=== PATIENT | female | born 1940 | race Caucasian/White ===

== ENCOUNTER 2020-01-27 00:19 | Inpatient (IN) | payer OTHER ==
[2020-01-27] VITALS (33 sets, daily range): BP systolic 115–156; BP diastolic 51–79
[~2020-01-27] VITALS: Ht 165.1 cm; Wt 90.9 kg
--- NOTE | ~2020-01-27 | EMS ---
[place] [address] EMS Patient Care Report Name: TIO YOU Room #: 170-12 ADM IN M.R.#: [id number] Admission: 01/27/20 Attend Phys: Nate Dickerson MD Discharge: Date of : 44 Report #: [id number] THIS REPORT FOR: //name// Report Transmitted: 01/27/2020 01:14 EMS Care Summary [place], [place] Incident [id number] @ 01/26/2020 23:52 Incident Location [address] [place] [address] Patient TIO YOU Female, 79 Years 1940 Patient Address [address] [place] [address] Patient History Novel Coronavirus (COVID-19), Patient Allergies No known allergies, Patient Medications Unknown, Chief Complaint SOA Disposition Transported Lights/[place] Dispatch Reason Breathing Problem Transported To [facility] Narrative RESPONDED TO BREATHING PROBLEMS AT [facility] . UPON ARRIVAL PT FOUND LAYING IN BED WITH SIMPLE MASK ON. PT APPEARS IN DISTRESS WITH LABORED, FAST BREATHING. STAFF REPORTS PT HAS BEEN AT FACILITY FOR ALMOST 1 WEEK AND IS COVID [address] [address] EMS Patient Care Report Name: TIO YOU Room #: 170-12 ADM IN [place]#: [id number] Admission: 01/27/20 Attend Phys: Nate Dickerson MD Discharge: Date of : 42 Report #: [id number] POSITIVE. PT NORMALLY ON OXYGEN AT 2LPM VIA NC BUT STAFF REPORTS PT O2 SATS WERE IN THE 70S. PT VITALS OBTAINED AND O2 SATS WERE 78. PT APPEARS WEAK AND ONLY NODS TO SOME QUESTIONS. PT OPENS EYES TO NAME. PT PLACED ON NRB AT 15LPM AND TEAM LIFTED TO COT. 3 LEAD OBTAINED. RECENT IV PLACED 2 DAYS AGO NOTED TO BE BRUISED AND VERY MINIMAL IV ACCESS. PT TRANSPORTED EMERGENCY TO [facility] WITH MINIMAL IMPROVEMENT IN O2 SATS. PT TEAM LIFTED TO BED AND HANDRAILS UP. REPORT GIVEN TO NURSE. Initial Vitals @00:04P: 97,SpO2: 82, @00:04P: 121,R: 28,BP: 160/77,Pain: 0/10,CO: 4,SpO2: 70, @00:10P: 119,R: 28,BP: 154/53,CO: 12,SpO2: 77, @00:08P: 121,R: 28,GCS: 10,SpO2: 69, @00:14P: 116,CO: 10,SpO2: 88, Assessments @00:03MENTAL:Person Oriented,SKIN:Pale,HEENT:Head/Face: No Abnormalities,Neck/Airway: No Abnormalities,LUNG SOUNDS:General: No Abnormalities,ABDOMEN:General: No Abnormalities,PELVIS//GI:Incontinence,EXTREMITIES:Left Arm: Weakness,Right Arm: Weakness,Right Leg: Weakness,Left Leg: Weakness,PULSE:NEURO:No Abnormalities,@00:10MENTAL:Person Oriented,SKIN:Pale,HEENT:Head/Face: No Abnormalities,Eyes: No Abnormalities,Neck/Airway: No Abnormalities,LUNG SOUNDS:General: No Abnormalities,Left Upper: No Abnormalities,Right Upper: No Abnormalities,Left Lower: No Abnormalities,Right Lower: No Abnormalities,ABDOMEN:General: No Abnormalities,Left Upper: No Abnormalities,Right Upper: No Abnormalities,Left Lower: No Abnormalities,Right Lower: No Abnormalities,PELVIS//GI:Incontinence,EXTREMITIES:Left Arm: Weakness,Right Leg: Weakness,Right Arm: Weakness,Left Leg: Weakness,PULSE:NEURO:No Abnormalities, Impression COVID-19 - Confirmed by testing Procedures @00:05Oxygen FlowRate: 15 Device: Non Re-breather Mask (NRB) Response: UnchangedSucceeded@00:03ALS AssessmentResponse: UnchangedSucceeded@PTAOxygen FlowRate: 10 Device: Simple Face Mask (SFM) Failed Timeline MECHANICAL CAD DRAFTER,Oxygen FlowRate: 10 Device: Simple Face Mask (SFM) Failed, 23:51,Call Received 23:51,Dispatch Notified 23:52,Dispatched 23:54,En Route 23:59,On Scene [address] [address] EMS Patient Care Report Name: TIO YOU Room #: 170-12 ADM IN M.R.#: [id number] Admission: 01/27/20 Attend Phys: Nate Dickerson MD Discharge: Date of : 44 Report #: [id number] 00:02,At Patient 00:03,ALS Assessment,Response: UnchangedSucceeded, 00:04,BP: / M,PULSE: 97,RR: R,SPO2: 82 Ox,ETCO2: ,BG: ,PAIN: ,GCS: , 00:04,BP: 160/77 M,PULSE: 121,RR: 28 R,SPO2: 70 Ox,ETCO2: ,BG: ,PAIN: 0,GCS: , 00:05,Oxygen FlowRate: 15 Device: Non Re-breather Mask (NRB) Response: UnchangedSucceeded, 00:08,BP: / M,PULSE: 121,RR: 28 R,SPO2: 69 Ox,ETCO2: ,BG: ,PAIN: ,GCS: 10, 00:09,Depart Scene 00:10,BP: 154/53 M,PULSE: 119,RR: 28 R,SPO2: 77 Ox,ETCO2: ,BG: ,PAIN: ,GCS: , 00:14,BP: / M,PULSE: 116,RR: R,SPO2: 88 Ox,ETCO2: ,BG: ,PAIN: ,GCS: , 00:16,At Destination 00:29,Call Closed Disclaimer v1.1 Copyright 2020 [facility] This EMS Care Summary contains data elements from the applicable legal record (which may be displayed differently). It is designed to provide pertinent information for the following purposes: continuity of care, clinical quality, and state data reporting. The complete legal record is available to ED staff and administrators of the receiving hospital in [employer]'s Patient Tracker. All data is provided "as is."
--- NOTE | ~2020-01-27 | EKG ---
[address] [place] [address] ELECTROCARDIOGRAM REPORT Name: TIO YOU Room #: 245-P ADM IN M.R.#: [id number] Admission: 01/27/20 Attend Phys: Brunilda Hdz MD Discharge: Date of : 42 Report #: [id number] [facility] Test Date: 2020-02-12 Test Time: 20:17:40 Pat Name: TIO YOU Department: Room: 245 P Gender: F International Trade Analyst: Lucas CASTANON : 1940 Requested By: Nancy Diallo Order Number: [id number] MD: Measurements Intervals [place] Rate: 138 P: 39 SD: 131 QRS: 15 QRSD: 66 T: 44 QT: 274 QTc: 415 Interpretive Statements Supraventricular tachycardia Multiple premature complexes, vent & supraven Repolarization abnormality, prob rate related Compared to ECG 01/27/2020 01:13:04 Early repolarization now present Sinus tachycardia no longer present [email or web address] By: 16 16 Epiphany EpiphanyMD /EPI
--- NOTE | ~2020-01-27 | EMS ---
[place] [id number] EMS Patient Care Report Name: TIO YOU Room #: 245-P ADM IN M.R.#: [id number] Admission: 01/27/20 Attend Phys: Nate Dickerson MD Discharge: Date of : 42 Report #: [id number] THIS REPORT FOR: //name// Report Transmitted: 01/27/2020 02:01 EMS Care Summary [place], [place]/[facility] Incident [id number] @ 01/26/2020 23:52 Incident Location [address] [place] [address] Patient TIO YOU Female, 79 Years 1940 Patient Address [address] [place] [address] Patient History Novel Coronavirus (COVID-19), Patient Allergies No known allergies, Patient Medications Unknown, Chief Complaint SOA Disposition Transported Lights/[place] Dispatch Reason Breathing Problem Transported To [facility] Narrative RESPONDED TO BREATHING PROBLEMS AT [facility] . UPON ARRIVAL PT FOUND LAYING IN BED WITH SIMPLE MASK ON. PT APPEARS IN DISTRESS WITH LABORED, FAST BREATHING. STAFF REPORTS PT HAS BEEN AT FACILITY FOR ALMOST 1 WEEK AND IS COVID [address] [address] EMS Patient Care Report Name: TIO YOU Room #: 245-P ADM IN [place]#: [id number] Admission: 01/27/20 Attend Phys: Nate Dickerson MD Discharge: Date of : 42 Report #: [id number] POSITIVE. PT NORMALLY ON OXYGEN AT 2LPM VIA NC BUT STAFF REPORTS PT O2 SATS WERE IN THE 70S. PT VITALS OBTAINED AND O2 SATS WERE 78. PT APPEARS WEAK AND ONLY NODS TO SOME QUESTIONS. PT OPENS EYES TO NAME. PT PLACED ON NRB AT 15LPM AND TEAM LIFTED TO COT. 3 LEAD OBTAINED. RECENT IV PLACED 2 DAYS AGO NOTED TO BE BRUISED AND VERY MINIMAL IV ACCESS. PT TRANSPORTED EMERGENCY TO [facility] WITH MINIMAL IMPROVEMENT IN O2 SATS. PT TEAM LIFTED TO BED AND HANDRAILS UP. REPORT GIVEN TO NURSE. Initial Vitals @00:04P: 97,SpO2: 82, @00:04P: 121,R: 28,BP: 160/77,Pain: 0/10,CO: 4,SpO2: 70, @00:10P: 119,R: 28,BP: 154/53,CO: 12,SpO2: 77, @00:08P: 121,R: 28,GCS: 10,SpO2: 69, @00:14P: 116,CO: 10,SpO2: 88, Assessments @00:03MENTAL:Person Oriented,SKIN:Pale,HEENT:Head/Face: No Abnormalities,Neck/Airway: No Abnormalities,LUNG SOUNDS:General: No Abnormalities,ABDOMEN:General: No Abnormalities,PELVIS//GI:Incontinence,EXTREMITIES:Left Arm: Weakness,Right Arm: Weakness,Right Leg: Weakness,Left Leg: Weakness,PULSE:NEURO:No Abnormalities,@00:10MENTAL:Person Oriented,SKIN:Pale,HEENT:Head/Face: No Abnormalities,Eyes: No Abnormalities,Neck/Airway: No Abnormalities,LUNG SOUNDS:General: No Abnormalities,Left Upper: No Abnormalities,Right Upper: No Abnormalities,Left Lower: No Abnormalities,Right Lower: No Abnormalities,ABDOMEN:General: No Abnormalities,Left Upper: No Abnormalities,Right Upper: No Abnormalities,Left Lower: No Abnormalities,Right Lower: No Abnormalities,PELVIS//GI:Incontinence,EXTREMITIES:Left Arm: Weakness,Right Leg: Weakness,Right Arm: Weakness,Left Leg: Weakness,PULSE:NEURO:No Abnormalities, Impression COVID-19 - Confirmed by testing Procedures @00:05Oxygen FlowRate: 15 Device: Non Re-breather Mask (NRB) Response: UnchangedSucceeded@00:03ALS AssessmentResponse: UnchangedSucceeded@PTAOxygen FlowRate: 10 Device: Simple Face Mask (SFM) Failed Timeline FISHER,Oxygen FlowRate: 10 Device: Simple Face Mask (SFM) Failed, 23:51,Call Received 23:51,Dispatch Notified 23:52,Dispatched 23:54,En Route 23:59,On Scene [address] [address] EMS Patient Care Report Name: TIO YOU Room #: 245-P ADM IN M.R.#: [id number] Admission: 01/27/20 Attend Phys: Nate Dickerson MD Discharge: Date of : 42 Report #: [id number] 00:02,At Patient 00:03,ALS Assessment,Response: UnchangedSucceeded, 00:04,BP: / M,PULSE: 97,RR: R,SPO2: 82 Ox,ETCO2: ,BG: ,PAIN: ,GCS: , 00:04,BP: 160/77 M,PULSE: 121,RR: 28 R,SPO2: 70 Ox,ETCO2: ,BG: ,PAIN: 0,GCS: , 00:05,Oxygen FlowRate: 15 Device: Non Re-breather Mask (NRB) Response: UnchangedSucceeded, 00:08,BP: / M,PULSE: 121,RR: 28 R,SPO2: 69 Ox,ETCO2: ,BG: ,PAIN: ,GCS: 10, 00:09,Depart Scene 00:10,BP: 154/53 M,PULSE: 119,RR: 28 R,SPO2: 77 Ox,ETCO2: ,BG: ,PAIN: ,GCS: , 00:14,BP: / M,PULSE: 116,RR: R,SPO2: 88 Ox,ETCO2: ,BG: ,PAIN: ,GCS: , 00:16,At Destination 00:29,Call Closed Disclaimer v1.1 Copyright 2020 [employer] This EMS Care Summary contains data elements from the applicable legal record (which may be displayed differently). It is designed to provide pertinent information for the following purposes: continuity of care, clinical quality, and state data reporting. The complete legal record is available to ED staff and administrators of the receiving hospital in [employer]'s Patient Tracker. All data is provided "as is."
[2020-01-27 01:11] LABS: BE(vivo) -0.7 mmol/L (-2 to +3); HCO3 22.4 mmol/L (22.0-26.0); PCO2 32.5 mmHg (35.0-45.0); PO2 130.2 mmHg (80.0-100.0); pH 7.457 (7.360-7.450); sO2 98.8 % (92.0-98.0)
[2020-01-27 01:37] LABS: ABSOLUTE NEUTROPHILS 9.8 thou/uL (1.4-8.2); BASOPHILS 0.1 % (0.0-2.0); HEMATOCRIT 38.9 % (37.0-47.0); HEMOGLOBIN 12.8 gm/dL (12.0-15.0); LYMPHOCYTES 2.7 % (24.0-44.0); MCH 29.5 pg (26.0-34.0); MCHC 32.9 g/dL (28.0-37.0); MCV 89.8 fL (80.0-100.0); MONOCYTES 1.8 % (1.0-8.0); PLATELET COUNT 139 thou/uL (150-400); POLYS 95.4 % (36.0-66.0); RBC 4.34 mil/uL (4.20-5.00); RDW 14.1 % (10.5-14.5); WBC 10.3 thou/uL (4.0-11.0)
[2020-01-27 01:41] LABS: CALCIUM 8.6 mg/dL (8.5-10.1); CREATININE 0.8 mg/dL (0.6-1.0)
[2020-01-27 01:44] LABS: URINE BILIRUBIN NEGATIVE (Negative); URINE BLOOD TRACE (Negative); URINE CLARITY CLEAR; URINE COLOR YELLOW; URINE GLUCOSE-RANDOM* NEGATIVE (Negative); URINE KETONES 1+ (Negative); URINE LEUKOCYTES-REFLEX TRACE (Negative); URINE NITRITE-REFLEX NEGATIVE (Negative); URINE PROTEIN (DIPSTICK) 1+ (Negative); URINE SPECIFIC GRAVITY 1.025 (1.005-1.035)
[2020-01-27 01:51] LABS: ALBUMIN 2.1 g/dL (3.4-5.0); APTT 22.1 Seconds (24.5-32.8); MAGNESIUM 1.9 mg/dL (1.8-2.4); PROTIME 10.3 Seconds (9.3-11.4); TOTAL BILIRUBIN 0.9 mg/dL (0.2-1.0); TOTAL PROTEIN 5.9 g/dL (6.4-8.2)
[2020-01-27 01:56] LABS: POTASSIUM 2.9 mmol/L (3.5-5.1); TROPONIN-I 0.85 ng/mL (<0.06)
[2020-01-27] MEDS ORDERED: CITALOPRAM HBR40 MG PO (02:05)
[2020-01-27] MEDS ORDERED: ARICEPT10 MG PO (02:05)
[2020-01-27] MEDS ORDERED: LETROZOLE2.5 MG PO (02:06)
[2020-01-27 02:12] LABS: MUCUS 4-6 Moderate strn/LPF (None Seen); SQUAMOUS 0-3 Few /LPF (0-3)
[2020-01-27 02:13] LABS: BACTERIA-REFLEX 1-9 Few /HPF (None Seen); CASTS None Seen /LPF (None Seen); CRYSTALS None Seen /LPF (None Seen); TRANSITIONAL EPITHEL CELL 0-3 Few /LPF (None Seen); URINE RBC 0-2 Rare /HPF (0-2); URINE WBC-REFLEX 6-15 Few /HPF (0-5)
--- NOTE | 2020-01-27 04:19 | NUR ---
PT ARRIVAL TO ICU APPROXIMATELY 0300 FROM ED VIA CART ON VENT WITH PROPOFOL AND NS INFUSING. TRANSFERRED TO BED, CHG BATH GIVEN, PT FOUND WITH BM SMEAR. IS RESPONSIVE, BUT UNCERTAIN IF CAN HEAR, PT DOES NOT HAVE HEARING AIDS IN PLACE. MOVES ALL 4 EXTREMITIES. BP STABLE.
--- NOTE | 2020-01-27 07:19 | NUR ---
spoke with dgt, yumiko, gave passcode, gave update and explained process of visitation and restrictions, very pleasant and compliant
[2020-01-27 08:42] LABS: BE(vivo) -0.1 mmol/L (-2 to +3); PCO2 32.6 mmHg (35.0-45.0); PO2 82.2 mmHg (80.0-100.0); pH 7.466 (7.360-7.450); sO2 96.8 % (92.0-98.0)
[2020-01-27 10:05] LABS: TROPONIN-I 0.4 ng/mL (<0.06)
[2020-01-27 10:12] LABS: POTASSIUM 4.4 mmol/L (3.5-5.1)
--- NOTE | 2020-01-27 10:56 | NUR ---
ASSUMED CARE AT 0700, ASSESSMENT AND VITAL SIGNS COMPLETED PER ICU PROTOCOL. DR. FLORES PAGED AND NOTIFIED OF OLIGURIA. PLAN OF CARE DISCUSSED, NEW ORDERS RECEIVED.
--- NOTE | 2020-01-27 14:58 | NUR ---
VAT CONSULTED FOR A CL FOR THIS PT IN ICU WITH COVID. A 6FRTL CL PLACED RT IJ, TIP AT THE CAJ, PLEASE SEE NI FOR DETAILS
[2020-01-28] VITALS (59 sets, daily range): BP systolic 101–160; BP diastolic 38–75
--- NOTE | 2020-01-28 01:33 | NUR ---
PT RESP GOING UP AND O2 SAT GOING DOWN.ON TRYING TO SUCTION PT NOTED TO BE BITTING HER TUBE PREVENTING RN FROM SUCTIONING.RT NOTIFIED,MOUTH GUARD REPLACED, AND PROPFOL TITRATED UP FOR SEDATION .FIO2 AT THIS TIME UPTO TO 100%.RN/RT WERE ABLE TO SUCTION AND PT ACHIEVED O2 SATURATION OF 97%.ASSESSMENT COMPLETED DOCUMENTED.
[2020-01-28 05:52] LABS: ABSOLUTE NEUTROPHILS 8.7 thou/uL (1.4-8.2); BASOPHILS 0.1 % (0.0-2.0); HEMATOCRIT 31.5 % (37.0-47.0); LYMPHOCYTES 3.7 % (24.0-44.0); MCHC 33.5 g/dL (28.0-37.0); MCV 89.5 fL (80.0-100.0); MONOCYTES 2.3 % (1.0-8.0); PLATELET COUNT 99 thou/uL (150-400); POLYS 93.9 % (36.0-66.0); RBC 3.51 mil/uL (4.20-5.00); RDW 14.2 % (10.5-14.5); WBC 9.2 thou/uL (4.0-11.0)
[2020-01-28 05:54] LABS: HEMOGLOBIN 10.6 gm/dL (12.0-15.0)
[2020-01-28 06:06] LABS: FIBRINOGEN 346.1 mg/dL (210-360); INR 1.1
[2020-01-28 06:17] LABS: ALBUMIN 1.5 g/dL (3.4-5.0); CALCIUM 8.1 mg/dL (8.5-10.1); CREATININE 0.5 mg/dL (0.6-1.0); TOTAL BILIRUBIN 0.6 mg/dL (0.2-1.0); TOTAL PROTEIN 4.9 g/dL (6.4-8.2); TROPONIN-I 0.27 ng/mL (<0.06)
[2020-01-28 06:28] LABS: POTASSIUM 2.7 mmol/L (3.5-5.1)
--- NOTE | 2020-01-28 07:27 | NUR ---
ORDERS FOR EVAL AND TREAT. Pt IS INTUBATED AND SEDATED. WILL HOLD OFF ON EVAL AND AWAIT NEW ORDERS WHEN Pt CAN PARTICIPATE WITH THERAPY
[2020-01-28 07:31] LABS: PLATELET ESTIMATE DECREASED
[2020-01-28 07:32] LABS: POLYCHROMASIA 1+
--- NOTE | 2020-01-28 10:21 | NUR ---
Nutrition: REC start Vital AF to reach 50 mL/hr goal. Correct K+ prior and follow labs closely. Possible refeeding syndrome risk.
--- NOTE | 2020-01-28 13:40 | NUR ---
chart review. unable to visit with shayan rt on vent, covid + and conserve on ppe. cm visited with her daughter yumiko kinney via phone call. intro to cm and dcp. she reported " mom started getting sick 3rd and i had my brother take her to hospital then they sent her to [facility], she was not eating and had high fever, think they let her go to soon to [place] on 01/21/2020. mom [facility] [place]. she was manage own medication and still driving vehicle. she had mild ALZ, she did not use any medical eqip, lived by herself. independent. would like to get updates"/yumiko. education that would have bedside nurse call her when able to " thank you"/yumiko.
[2020-01-28 14:15] LABS: CALCIUM 8.2 mg/dL (8.5-10.1); CREATININE 0.7 mg/dL (0.6-1.0); MAGNESIUM 1.9 mg/dL (1.8-2.4); POTASSIUM 3.1 mmol/L (3.5-5.1)
--- NOTE | 2020-01-28 18:05 | NUR ---
PT SEEN BY / TODAY, VERSED GTT STARTED, PRN DOSE GIVEN WELL TO PROMOTE VENTILATION COMFORT. HR/RR SEEN INCREASED DURING LOW SEDATION/OR HIGH AGITATION. PROPOFOL GTT LOWERED WELL. VENT SETTING STILL THE SAME FROM PREVIOUS SHIFT. PT HAS HEALTHY URINE OUTPUT. FAMILY MEMBER UPDATED AT THE EVENING PER SW REQUEST. SPOKE ABOUT CURRENT STATE IN CARE, THE VENTILATION SUPPORT PT IS IN WELL THE MEDICATION SUPPORTING VENTILATION CARE. PT'S FAMILY DPOA VERBALIZES UNDERSTANDING. PT HAS BEEN ABLE TO MAINTAIN CURRENT OXYGENATION AND HAS NOT DETERIORIATED AND WAS ABLE TO GO DOWN ON PROPOFOL WELL START TUBE FEEDING TODAY. CURRENTLY AT 30CC OF 50CC GOAL. RN STATES FOR THOSE REASONS PT IS PROGRESSING TOWARDS DISCHARGE. WILL CONTINUE TO MONITOR
[2020-01-29] VITALS (60 sets, daily range): BP systolic 98–122; BP diastolic 34–53
[2020-01-29 06:22] LABS: ALBUMIN 1.3 g/dL (3.4-5.0); CALCIUM 7.9 mg/dL (8.5-10.1); CREATININE 0.6 mg/dL (0.6-1.0); DIRECT BILIRUBIN 0.3 mg/dL (<0.1-0.2); PHOSPHORUS 2.5 mg/dL (2.5-4.9); POTASSIUM 3.3 mmol/L (3.5-5.1); TOTAL BILIRUBIN 0.5 mg/dL (0.2-1.0); TOTAL PROTEIN 4.6 g/dL (6.4-8.2)
--- NOTE | 2020-01-29 06:44 | NUR ---
Bedside report received at 1900, care assumed. Assessments done as documented. Pt not following commands. FIO2 at 100%. Sedation vacation not done, pt not meeting criteria. Tube feeding at 40ml/r. FIO2 decreased to 80% at 0000. Pt tolerated, no complications noted. At 0400, FI02 decreased to 60%. Pt tolerating without complications. 02 sats on the high 90s, regular respiratory rate. Will continue to monitor.
--- NOTE | 2020-01-29 17:24 | NUR ---
SPOKE WITH DAUGHTER, ANJANA, WHO CALLED ON NUMEROUS OCCASIONS THROUGHOUT THE DAY TO RECEIVE UPDATES. NOTIFIED OF PT PULLING LINES/TUBES, REQUIRING RESTRAINT. UPDATED ON PT TAKING OFF BIPAP, BUT TRIALING ON O2 BY NASAL CANNULA. KINDLY REQUESTED FOR ANJANA TO ONLY CALL A COUPLE OF TIMES PER DAY TO MINIMIZE TIME AWAY FROM PATIENT CARE. REASSURED ANJANA THAT WE WOULD CALL HER FOR ANY CHANGES IN PT STATUS. EMOTIONAL SUPPORT PROVIDED.
--- NOTE | 2020-01-29 18:42 | NUR ---
PT REMAINS ON VENTILATOR, INCREASED OXYGEN DEMANDS TODAY. PT TOLERATING TUBE FEEDINGS AND REQUIRED PLACEMENT OF FECAL MANAGEMENT SYSTEM DUE TO WATERY STOOLS. URINE OUTPUT HAS BEEN ADEQUATE. IN REFERENCE TO RESPIRATORY STATUS, PT IS NOT PROGRESSING TOWARD GOALS @ THIS TIME.
[2020-01-30] VITALS (53 sets, daily range): BP systolic 104–136; BP diastolic 34–65
[2020-01-30 03:18] LABS: BE(vivo) -5.8 mmol/L (-2 to +3); HCO3 21.7 mmol/L (22.0-26.0); PCO2 51.6 mmHg (35.0-45.0); sO2 85.1 % (92.0-98.0)
[2020-01-30 03:20] LABS: pH 7.242 (7.360-7.450)
--- NOTE | 2020-01-30 04:41 | NUR ---
ASSESSMENTS CHARTED, MEDS CHARTED GIVEN. PATIENT SEDATED ON VENTILATOR DURING SHIFT. PATIENTS MAP DROPPED BELOW 60, SPOKE WITH RENETTA BENEDICT NP AND GOT A ONETIME BOLUS OF NS AND SUGGESTED TO TITRATE PROPOFOL AND VERSED. REPIRATORY THERAPY DID AN ABG THAT HAD A CRITICAL pH. CALLED DR. TAMAYO WITH LAB RESULTS AND CURRENT VENT SETTINGS. RECEIVED ORDERS TO CHANGE VENT SETTINGS. PATIENTS TUBE FEEDING WAS HELD DUE TO LARGE RESIDUAL AMOUNT. FALL PRECAUTIONS IN PLACE DURING SHIFT.
[2020-01-30 05:48] LABS: ABSOLUTE NEUTROPHILS 8.9 thou/uL (1.4-8.2); BASOPHILS 0.2 % (0.0-2.0); DIRECT BILIRUBIN 0.3 mg/dL (<0.1-0.2); HEMATOCRIT 33.3 % (37.0-47.0); HEMOGLOBIN 10.8 gm/dL (12.0-15.0); LYMPHOCYTES 2.2 % (24.0-44.0); MCH 29.8 pg (26.0-34.0); MCHC 32.4 g/dL (28.0-37.0); MCV 92.1 fL (80.0-100.0); MONOCYTES 1.3 % (1.0-8.0); PHOSPHORUS 2.6 mg/dL (2.5-4.9); PLATELET COUNT 100 thou/uL (150-400); POLYS 96.3 % (36.0-66.0); RBC 3.61 mil/uL (4.20-5.00); RDW 15.9 % (10.5-14.5); WBC 9.3 thou/uL (4.0-11.0)
[2020-01-30 05:53] LABS: ALBUMIN 1.2 g/dL (3.4-5.0); CALCIUM 8.1 mg/dL (8.5-10.1); CREATININE 0.5 mg/dL (0.6-1.0); POTASSIUM 3.3 mmol/L (3.5-5.1); TOTAL BILIRUBIN 0.4 mg/dL (0.2-1.0); TOTAL PROTEIN 4.5 g/dL (6.4-8.2)
--- NOTE | 2020-01-30 15:33 | NUR ---
FAXED CLINICAL UPDATE TO [facility] SPOKE WITH CLEO IN ADM SHE RECEIVED UPDATE.
--- NOTE | 2020-01-30 17:58 | NUR ---
PT STILL WITH HIGH TUBE FEEDING RESIDUALS. PT COMPLETELY OFF SEDATION, GRIMACES WITH NOXIOUS STIMULI, + GAG, + COUGH. DOESN'T MOVE EXTREMITIES OR OPEN EYES @ THIS TIME. URINE OUTPUT MARGINAL. SLIGHTLY DECREASED OXYGEN REQUIREMENTS TODAY. VITAL SIGNS HAVE BEEN STABLE W/ IMPROVED B/P. OVERALL NOT PROGRESSING TOWARD GOALS.
[2020-01-31] VITALS (59 sets, daily range): BP systolic 107–159; BP diastolic 38–66
[2020-01-31 06:04] LABS: ALBUMIN 1.2 g/dL (3.4-5.0); CREATININE 0.6 mg/dL (0.6-1.0); DIRECT BILIRUBIN 0.2 mg/dL (<0.1-0.2); PHOSPHORUS 2.5 mg/dL (2.5-4.9); POTASSIUM 3.5 mmol/L (3.5-5.1); TOTAL BILIRUBIN 0.4 mg/dL (0.2-1.0); TOTAL PROTEIN 4.4 g/dL (6.4-8.2)
--- NOTE | 2020-01-31 06:46 | NUR ---
PT HR AND RR ELEVATED, SEDATION TURNED BACK ON AT BEGINNING OF SHIFT. PT DOES NOT RESPOND TO VOICE OR STERNAL RUB, BUT HR AND RR ELEVATE WHEN RN IS IN ROOM. MORPHINE GIVEN FOR CPOT PAIN SCALE, WITH SOME RELIEF NOTED BY HR DECREASING AND RR BACK TO VENT SETTINGS.
--- NOTE | 2020-01-31 09:50 | NUR ---
ASSUMED CARE OF PT AT 0700. RONI AT BEDSIDE AT 0915. I ASKED HIM ABOUT STARTING REGLIN DUE TO HIGH RESIDUALS SO HE GAVE ME AN ORDER FOR IT. I ALSO ASKED HIM ABOUT A FENTANYL DRIP DUE TO HER BREATHING 38 TIMES A MINUTE. HE SAID HE WOULD LOOK INTO IT.
[2020-01-31 15:55] LABS: BE(vivo) -4.8 mmol/L (-2 to +3); HCO3 19.6 mmol/L (22.0-26.0); PCO2 33.9 mmHg (35.0-45.0); pH 7.379 (7.360-7.450); sO2 84.3 % (92.0-98.0)
--- NOTE | 2020-01-31 23:48 | NUR ---
2240-SEDATION VACATION FOR 20 MINUTES. PUPILS REACTED MORE QUICKLY, RR INCREASED TO 35, DID NOT FOLLOW COMMANDS OR MAKE ANY MOVEMENTS. 2330-RR STILL ELEVATED MID-30'S, HR LOW 100'S. INCREASED VERSED TO 4.
[2020-02-01] VITALS (61 sets, daily range): BP systolic 129–157; BP diastolic 46–72
[2020-02-01 03:34] LABS: BE(vivo) -3.6 mmol/L (-2 to +3); PCO2 35.9 mmHg (35.0-45.0); PO2 71.4 mmHg (80.0-100.0); pH 7.384 (7.360-7.450); sO2 94.3 % (92.0-98.0)
[2020-02-01 06:19] LABS: HEMATOCRIT 30.3 % (37.0-47.0); HEMOGLOBIN 9.9 gm/dL (12.0-15.0); MCH 29.5 pg (26.0-34.0); MCHC 32.8 g/dL (28.0-37.0); MCV 90.2 fL (80.0-100.0); PLATELET COUNT 76 thou/uL (150-400); RBC 3.36 mil/uL (4.20-5.00); RDW 15.6 % (10.5-14.5)
[2020-02-01 06:58] LABS: ALBUMIN 1.2 g/dL (3.4-5.0); CALCIUM 7.7 mg/dL (8.5-10.1); CREATININE 0.5 mg/dL (0.6-1.0); TOTAL BILIRUBIN 0.4 mg/dL (0.2-1.0); TOTAL PROTEIN 4.5 g/dL (6.4-8.2)
[2020-02-01 10:07] LABS: ABSOLUTE NEUTROPHILS 11.5 thou/uL (1.4-8.2); ANISOCYTOSIS SLIGHT; BURR CELLS FEW; LARGE PLATELETS OCCASIONAL; MYELOCYTES 1 %; POIKILOCYTOSIS SLIGHT
[2020-02-01 10:08] LABS: PLATELET ESTIMATE SLIGHTLY DECREASED
--- NOTE | 2020-02-01 14:38 | NUR ---
ON-GOING ASSESSMENT: CM REVIEWED CHART. PT REMAINS IN ENHANCED ISOLATION DUE TO COVID 19. PT REMAINS ON THE VENT. PT CONTINUES TO RECEIVE REMDESIVIR. CM WILL CONTINUE TO FOLLOW TO ASSIST NEEDED. CM UPDATED LIASON AT [facility]. CM WILL CONTINUE TO FOLLOW TO ASSIST NEEDED.
--- NOTE | 2020-02-01 15:19 | NUR ---
PT INTUBATED AND SEDATED, VENT SETTINGS UNCHANGED. HEMODYNAMICALLY STABLE. SMALL GAG/COUGH, PUPILS REACTIVE WITH BILATERAL SCLERALEDEMA, SLIGHTLY WITHDRAW TO PAIN. PT DID NOT RESPOND TO SSEDATION VACATION, ONLY VITAL SIGNS INCREASED. AFEBRILE, POLYUREA, FMS IN PLACE WITH ADEQUATE OUTPUT, TOLERATING TUBE FEEDINGS. LABS, IMAGES, MEDS REVIEWED. MELVIN JARVIS WAS CALLED AND ATTEMPTED TO UPDATED/EDUCATE AT 1523, NO ANSWER. PT HAS BEEN UPDATED AND EDUCATED ON CONDITION AND POC. PT NOT PROGRESSING TOWARDS POC.
[2020-02-02] VITALS (63 sets, daily range): BP systolic 118–163; BP diastolic 40–73
[2020-02-02 05:47] LABS: HEMATOCRIT 30.9 % (37.0-47.0); HEMOGLOBIN 10.1 gm/dL (12.0-15.0); MCH 29.6 pg (26.0-34.0); MCHC 32.8 g/dL (28.0-37.0); MCV 90.1 fL (80.0-100.0); RBC 3.43 mil/uL (4.20-5.00); RDW 15.8 % (10.5-14.5); WBC 11.2 thou/uL (4.0-11.0)
[2020-02-02 06:07] LABS: ALBUMIN 1.3 g/dL (3.4-5.0); CALCIUM 7.8 mg/dL (8.5-10.1); CREATININE 0.5 mg/dL (0.6-1.0); DIRECT BILIRUBIN 0.1 mg/dL (<0.1-0.2); PHOSPHORUS 2.3 mg/dL (2.5-4.9); POTASSIUM 3.3 mmol/L (3.5-5.1); TOTAL BILIRUBIN 0.3 mg/dL (0.2-1.0); TOTAL PROTEIN 4.7 g/dL (6.4-8.2)
--- NOTE | 2020-02-02 07:36 | NUR ---
PATIENT OPENING EYES DURING REPOSITIONING AND WITHDRAWS TO PAIN. POSITIVE GAG/COUGH REFLEX AND CLAMPS TEETH DURING MOUTH CARE.L/S COARSE.B/S ACTIVE, ABDOMEN ROUND AND FIRM. NO GASTRIC RESIDUAL, TF INCREASED TO 40ML/HR, GOAL RATE 50ML/HR. UOP 1200ML CLEAR YELLOW.ON AC 24, FIO2 80% AND NOT PROGRESSING WELL TOWARDS GOAL.FMS FREE FROM KINKS, 200ML OUTPUT NOTED
--- NOTE | 2020-02-02 18:03 | NUR ---
ASSESSMENT CHARTED, TF RESIDUAL AT 8AM WAS 525 ML, TF SUSPENDED FOR ONE HOUR. NO OTHER ISSUES OR DISCOMFORT NOTED. WILL CONTINUE WITH POC.
[2020-02-03] VITALS (50 sets, daily range): BP systolic 106–153; BP diastolic 29–64
[2020-02-03 04:04] LABS: BE(vivo) 0.6 mmol/L (-2 to +3); HCO3 25.2 mmol/L (22.0-26.0); PCO2 40.1 mmHg (35.0-45.0); PO2 80.9 mmHg (80.0-100.0); pH 7.416 (7.360-7.450); sO2 96.1 % (92.0-98.0)
[2020-02-03 08:16] LABS: HEMATOCRIT 27.2 % (37.0-47.0); MCH 29.8 pg (26.0-34.0); MCHC 33.1 g/dL (28.0-37.0); RBC 3.03 mil/uL (4.20-5.00); RDW 15.7 % (10.5-14.5); WBC 7.5 thou/uL (4.0-11.0)
[2020-02-03 08:39] LABS: ALBUMIN 1.1 g/dL (3.4-5.0); ANION GAP 6 mmol/L (7-16); BUN 25 mg/dL (7-18); CALCIUM 7.9 mg/dL (8.5-10.1); CHLORIDE 114 mmol/L (98-107); CO2 28 mmol/L (21-32); CREATININE 0.5 mg/dL (0.6-1.0); DIRECT BILIRUBIN < 0.1 mg/dL (<0.1-0.2); GLUCOSE 214 mg/dL (74-106); PHOSPHORUS 2.9 mg/dL (2.6-4.7); POTASSIUM 3.3 mmol/L (3.5-5.1); SGOT 42 U/L (15-37); SGPT 51 U/L (14-59); SODIUM 148 mmol/L (136-145); TOTAL BILIRUBIN 0.3 mg/dL (0.2-1.0)
--- NOTE | 2020-02-03 13:09 | NUR ---
INCREASED PATIENTS PEEP TO 10 AND FIO2 TO 80% ON SECOND CHECK FOR TODAY. THE PATIENT HAD A SATURATION OF 86%. WHEN EXITING THE ROOM THE PATIENT HAD A SATURATION OF 94%. MELY ASHRAF AND DR TAMAYO WERE BOTH NOTIFIED AT 4403 02/03/20.
--- NOTE | 2020-02-03 19:52 | NUR ---
ASSUMED CARE AT 0700. PATIENT NOT PROGRESSING TOWARDS THE PLAN OF CARE EVIDENCED BY INCREASED OXYGEN DEMAND.
[2020-02-04] VITALS (30 sets, daily range): BP systolic 94–126; BP diastolic 37–51
[2020-02-04 03:02] LABS: BE(vivo) 2.2 mmol/L (-2 to +3); HCO3 27.2 mmol/L (22.0-26.0); PCO2 44.4 mmHg (35.0-45.0); PO2 91.9 mmHg (80.0-100.0); pH 7.405 (7.360-7.450)
--- NOTE | 2020-02-04 06:22 | NUR ---
Patient unable to do sedation vacation, high FIO2/peep and history of desatting and resp distress while off sedation. Versed at 5 mcgs and Propofol at 30 mcgs. Patient riding the vent. Adequate oxygenation when at rest. With any repostioning, patient desats. Lasix and ablumin given. K+ low, replacing with electrolyte replacement protocol. Large dieuresis 4 Liters. Patient hypothermic this shift. Placed a rectal temp prob and dhiraj hugger. Tolerating tube feeds, will increase towards goal rate. Heart rate and rhythm stable. Blood sugars high this shift, covering with SSI. Patient is maintaining but not moving towards goals/plan of care. See documentation on interventions for assessment details.
[2020-02-04 06:48] LABS: HEMATOCRIT 24.6 % (37.0-47.0); HEMOGLOBIN 8.2 gm/dL (12.0-15.0); MCHC 33.4 g/dL (28.0-37.0); MCV 89.6 fL (80.0-100.0); RBC 2.74 mil/uL (4.20-5.00); RDW 15.2 % (10.5-14.5); WBC 7.4 thou/uL (4.0-11.0)
[2020-02-04 07:03] LABS: ALBUMIN 1.7 g/dL (3.4-5.0); CALCIUM 7.8 mg/dL (8.5-10.1); CREATININE 0.6 mg/dL (0.6-1.0); DIRECT BILIRUBIN 0.2 mg/dL (<0.1-0.2); POTASSIUM 3.7 mmol/L (3.5-5.1); TOTAL BILIRUBIN 0.3 mg/dL (0.2-1.0)
--- NOTE | 2020-02-04 07:54 | EKG ---
[address] [address] ELECTROCARDIOGRAM REPORT Name: TIO YOU Room #: [facility]- ADM IN M.R.#: [id number] Admission: 01/27/20 Attend Phys: Brunilda Hdz MD Discharge: Date of : 44 Report #: [id number] [facility] ED Test Date: 2020-01-27 Test Time: 01:13:04 Pat Name: TIO YOU Department: Room: [facility] Gender: F Client Services Director: [facility] : 1940 Requested By: Uriel Cabral Order Number: [id number] : Ramiro Luong Measurements Intervals [place] Rate: 103 P: 59 WV: 143 QRS: 25 QRSD: 71 T: 27 QT: 344 QTc: 451 Interpretive Statements Sinus tachycardia No previous ECG available for comparison Electronically Signed On 01-28-2020 7:21:38 PV DESIGN ENGINEER by Ramiro Luong [email or web address] <ELECTRONICALLY SIGNED> By: Ramiro Luong MD, [facility] 01/28/20 0721 0113 0113 Ramiro Luong MD, FACC /EPI
--- NOTE | 2020-02-04 15:20 | NUR ---
PT SEDATED ON VENT. FIO2 TITRATED DOWN TO 60%, PT TOLERATING WELL. SEDATION VACACTION DONE FOR 20 MINUTES THIS AM, PT WAS NOT AROUSABLE, DOES WITHDRAW TO PAIN, DURING VACATION PT BECAME MORE TACHYCARDIC/TACHYPNEIC. BEAR HUGGER ON PT UNTIL APPROX 1400, PT NOW NORMOTHERMIC. FMS IN PLACE WITH ADEQUATE AMOUNT OF STOOL, ELKINS WITH ADEQUATE UOP, PT TOLERATING TUBE FEED AND H20 FLUSHES, RESIDUALS WNL. VENT DAY 8. RIGHT IJ IN PLACE AND FUNCTIONING WELL. MEDICATIONS/IMAGING/LABS HAVE BEEN REVIEWED. PT UPDATED AND EDUCATED ON PT CONDITION AND POC. FAMILY WAS ATTEMPTED TO CALL WITH NO ANSWER. PT SLOWLY PROGRESSING TOWARDS POC.
--- NOTE | 2020-02-04 16:02 | NUR ---
Case discussed with the care team. Pt remains sedated on the vent and desats easily. Nursing attempted to update dtr Priscilla today without success. DC needs are uncertain at this time. DC cyber ops planner to fax a clinical update to the [place] liason. Will follow.
[2020-02-05] VITALS (33 sets, daily range): BP systolic 102–131; BP diastolic 38–55
[2020-02-05 05:36] LABS: HEMATOCRIT 24.8 % (37.0-47.0); HEMOGLOBIN 8.1 gm/dL (12.0-15.0); MCH 29.7 pg (26.0-34.0); MCHC 32.8 g/dL (28.0-37.0); MCV 90.7 fL (80.0-100.0); RBC 2.74 mil/uL (4.20-5.00); RDW 15.6 % (10.5-14.5); WBC 9.1 thou/uL (4.0-11.0)
[2020-02-05 05:46] LABS: ALBUMIN 1.6 g/dL (3.4-5.0); CALCIUM 7.5 mg/dL (8.5-10.1); CREATININE 0.6 mg/dL (0.6-1.0); DIRECT BILIRUBIN 0.1 mg/dL (<0.1-0.2); PHOSPHORUS 3.3 mg/dL (2.5-4.9); POTASSIUM 3.4 mmol/L (3.5-5.1); TOTAL BILIRUBIN 0.3 mg/dL (0.2-1.0)
[2020-02-05 05:47] LABS: TOTAL PROTEIN 3.8 g/dL (6.4-8.2)
--- NOTE | 2020-02-05 06:04 | NUR ---
Patient fairly stable overnight. Continues on versed and propofol for sedation. Heart rate and rhythm stable. Irvin hugger on as patient is unable to maintain own temperature. Patient continues on 70% FIO2 with adequate oxygenation. Pt continues to desat with any turning/repositioning. Tolerating tube feeds, increased rate to 40ml/hr. Accuchecks high, increased SSI to moderate dose. At the beginning of the shift, cardona noted to be leaking. Replaced with an 18F. Patient had large u/o. Am labs sent. K+ noted to be low. Will replace with elyte protocol. Talked with patient's daughter this shift. Gave update and potential timeline and outcome, positive and negitive. She wanted to be prepared. See documentation on interventions for assessment details. Patient is not progressing towards goals.
--- NOTE | 2020-02-05 13:44 | NUR ---
PT SEEN BY //RT NO SIGNIFICANT CHANGES AT THIS TIME, PT RECEIVED 20MEQ OF POTASSIUM, K NOW AT 3.7, SPOKE ABOUT TRANSITIONING PT FROM PROPOFOL GTT TO FENTANYL/VERSED GTT. PROPOFOL HAS BEEN WEANED FROM 30 TO 10 THIS SHIFT. NO CHANGES IN PATIENT'S VS REFLECTING THE WEANING, PT TOLERATING. FIO2 DECREASED FROM 70 TO 65. MAINTAINING O2 OF 94. NO FAMILY MEMBER CONTACT AT THIS TIME. CONTINUING TO MONITOR. PT IS NOT PROGRESSING TOWARDS CARE, PT HAS BEEN STAGNANT. WAS CONSULTED BY FOR GOAL OF CARE. PER , HE WILL COMMUNICATE WITH THE FAMILY REGARDING THIS EVENING.
[2020-02-06] VITALS (42 sets, daily range): BP systolic 104–135; BP diastolic 47–61
[2020-02-06 06:22] LABS: HEMATOCRIT 28.4 % (37.0-47.0); HEMOGLOBIN 9.2 gm/dL (12.0-15.0); MCH 29.7 pg (26.0-34.0); MCHC 32.4 g/dL (28.0-37.0); MCV 91.6 fL (80.0-100.0); RBC 3.1 mil/uL (4.20-5.00); RDW 15.4 % (10.5-14.5); WBC 13.3 thou/uL (4.0-11.0)
[2020-02-06 06:30] LABS: CALCIUM 7.4 mg/dL (8.5-10.1); CREATININE 0.5 mg/dL (0.6-1.0); POTASSIUM 3.4 mmol/L (3.5-5.1)
--- NOTE | 2020-02-06 12:06 | NUR ---
SPOKE WITH PATIENT'S DPOA MELVIN MATHEUS REGARDING CURRENT PT STATUS WELL PLAN FOR THE FUTURE AHEAD. PER MELVIN, AFTE DISCUSSING WITH THE BROTHER, THEY HAVE COME TO THE CONCENSUS THAT THEY DO NOT WANT TRACHEOSTOMY DONE FOR THE PT, THEY ALSO WANT THE PT TO BE LEFT ON VENTILATOR FOR THREE WEEKS AND ON THE February, THEY WILL WITHDRAW CARE IF NO IMPROVEMENT HAS OCCURED, IT IS THEIR WISH TO NOT DO THIS OVER THE HOLIDAYS. THEY ALSO CAME TO AGREEMENT THAT PT WILL GO ON TO DNR STATUS, THIS RN WILL COMMUNICATE THIS WITH THE ATTENDING TO GET THE CODE STATUS CHANGED. LASTLY, FAMILY MEMBERS (BROTHER/MELVIN/GRANDSON) WOULD LIKE TO BE PRESENT (IN ROOM IF POSSIBLE) DURING THE TIME OF , STATED THEY WILL WEAR A HAZMAT SUIT IF NEEDED. RN STATED THAT RN WILL DISCUSS THIS WITH THE MD WELL.
[2020-02-07] VITALS (131 sets, daily range): BP systolic 90–134; BP diastolic 37–56
--- NOTE | 2020-02-07 01:54 | NUR ---
7963-RECEIVED REPORT FROM OFF-GOING RN. ASSESSMENT COMPLETED. REMAINS ON D5, FENTANYL, AND VERSED DRIPS.
[2020-02-07 06:26] LABS: HEMATOCRIT 26.3 % (37.0-47.0); HEMOGLOBIN 8.5 gm/dL (12.0-15.0); MCH 29.5 pg (26.0-34.0); MCHC 32.5 g/dL (28.0-37.0); MCV 90.9 fL (80.0-100.0); RBC 2.89 mil/uL (4.20-5.00); RDW 15.6 % (10.5-14.5); WBC 14.7 thou/uL (4.0-11.0)
[2020-02-07 06:38] LABS: CALCIUM 7.4 mg/dL (8.5-10.1); CREATININE 0.5 mg/dL (0.6-1.0); POTASSIUM 3.8 mmol/L (3.5-5.1)
[2020-02-07 16:13] LABS: BE(vivo) 1.3 mmol/L (-2 to +3); HCO3 26.3 mmol/L (22.0-26.0); PCO2 43.7 mmHg (35.0-45.0); pH 7.398 (7.360-7.450); sO2 97.9 % (92.0-98.0)
--- NOTE | 2020-02-07 18:41 | NUR ---
PT SEEN BY // PT IS NOT PROGRESSING TOWARDS DISCHARGE, PT HAD ACTIVE NEED FOR INCREASED OXYGENATION AND REACHED 100%FIO2 THROUGHOUT THE DAY. PT DOES NOT TOLERATE TURNS WELL, WAS SEEN TO DESAT TO 84% HEALTHY OUTPUT OF URINE THIS SHIFT 1.6L, Q2H TURNS MAINTAINED TO PROTECT BOTTOM. FECAL MANAGEMENT SYSTEM BAG CHANGED DUE TO LEAKAGE. FENTANYL WAS TITRATED TO 25MCG, BUT PT'S HR WAS SEEN TO BE INCREASING WELL RESPIRATORY RATE, SO FENTANYL WAS INCREASED BACK UP TO 50MCG. STILL ON VERSED GTT. DUE TO INCREASING DEMAND OF O2, PT IS NOT PROGRESSING
[2020-02-08] VITALS (75 sets, daily range): BP systolic 104–135; BP diastolic 42–55
[2020-02-08 06:39] LABS: HEMATOCRIT 25.9 % (37.0-47.0); HEMOGLOBIN 8.4 gm/dL (12.0-15.0); MCH 29.7 pg (26.0-34.0); MCHC 32.2 g/dL (28.0-37.0); MCV 92.2 fL (80.0-100.0); RBC 2.81 mil/uL (4.20-5.00); RDW 15.8 % (10.5-14.5); WBC 14.1 thou/uL (4.0-11.0)
[2020-02-08 06:54] LABS: CALCIUM 7.4 mg/dL (8.5-10.1); CREATININE 0.5 mg/dL (0.6-1.0); POTASSIUM 4.5 mmol/L (3.5-5.1)
--- NOTE | 2020-02-08 07:15 | NUR ---
SEDATED ON FENTANYL AND VERSED GTTS. FIO2 DECREASED FROM 80% TO 75% WITH OXYGEN SATURATION MAINTAINED ABOVE 95%. 1100 CC URINE OUT OVERNIGHT. TOLERATING TF AT GOAL. GCS 3. MTN NOTIFIED. PT NOT PROGRESSING TOWARDS GOALS IN PLAN OF CARE.
--- NOTE | 2020-02-08 19:35 | NUR ---
PT IS NOT PROGRESSING TOWARDS DISCHARGE AT THIS TIME, FENTANYL/MIDZOLAM WAS TAKNE OFF TO ASSESS NEUROLOGIC STATUS, ONLY CHANGE MANIFESTED IN THE PT WAS INCREASED HR, FROM 90S to 100S, FENTANYL 25MCG RESTARTED FOR COMFORT. CT SCAN WAS ORDERED BUT D/T STAFFING SHE COULD NOT GO TODAY, WILL ATTEMPT AGAIN TOMORROW. OK PER . HEALTHY URINE OUTPUT. FAMILY WAS NOTIFIED OF THE NEUROLOGIC STATUS AND MONITORING OF. PT'S NEED FOR FIO2 HAS CLIMBED BACK UP TO 90% TO SUSTAIN 92SAO2 AT THIS TIME. NOC RN NOTIFIED OF CHANGES CONTINUING TO MONITOR, RN SIGNING OFF.
[2020-02-09] VITALS (24 sets, daily range): BP systolic 108–172; BP diastolic 39–63
[2020-02-09 06:57] LABS: HEMATOCRIT 30.4 % (37.0-47.0); HEMOGLOBIN 9.7 gm/dL (12.0-15.0); MCH 29.4 pg (26.0-34.0); MCHC 31.9 g/dL (28.0-37.0); MCV 92.3 fL (80.0-100.0); RBC 3.3 mil/uL (4.20-5.00); RDW 16.5 % (10.5-14.5); WBC 23.1 thou/uL (4.0-11.0)
[2020-02-09 07:16] LABS: CALCIUM 7.9 mg/dL (8.5-10.1); CREATININE 0.5 mg/dL (0.6-1.0); POTASSIUM 4.6 mmol/L (3.5-5.1)
--- NOTE | 2020-02-09 10:00 | NUR ---
pupils 3- brisk, all ext flaccid, unable to open eyes or respond in any other way. desaturation with any activity into mid 80's.
--- NOTE | 2020-02-09 14:30 | NUR ---
resp labored, red in the face, desaturation to 82%, increased to fio2-100% on vent, recently repositioned for comfort. paged Dr. Dickerson, call returned. updated on pt status. abg, pcxr ordered. iv fluids dc'd. today delaying CT head related to pt instability.
--- NOTE | 2020-02-09 14:30 | NUR ---
SA02 DOWN TO 82% AFTER REPOSITIONING. DESPITE INTERMITTENTLY INITIATING FIO2-100% FOR SUCTIONING, SA02 ONLY INCREASED TO 85% OVER 20 MINUTES. FI02 INCREASED TO 100% AT 1400, THEN SA02 ONLY INCREASED TO 89-90% BY 1430. DR. LOWERY NOTIFIED. CT OF HEAD DELAYED TODAY RELATED TO UNSTABLE STATUS. ABG/PORTABLE CHEST XRAY PENDING.
[2020-02-09 15:08] LABS: BE(vivo) 3.1 mmol/L (-2 to +3); HCO3 28.7 mmol/L (22.0-26.0); PCO2 48.4 mmHg (35.0-45.0); PO2 61.8 mmHg (80.0-100.0); pH 7.391 (7.360-7.450); sO2 91.3 % (92.0-98.0)
[2020-02-10] VITALS (79 sets, daily range): BP systolic 104–164; BP diastolic 34–59
[2020-02-10 05:41] LABS: CALCIUM 7.5 mg/dL (8.5-10.1); CREATININE 0.5 mg/dL (0.6-1.0); POTASSIUM 4.7 mmol/L (3.5-5.1)
[2020-02-10 05:42] LABS: HEMATOCRIT 24.8 % (37.0-47.0); HEMOGLOBIN 7.9 gm/dL (12.0-15.0); MCH 29.5 pg (26.0-34.0); MCHC 31.9 g/dL (28.0-37.0); MCV 92.6 fL (80.0-100.0); RBC 2.68 mil/uL (4.20-5.00); RDW 16.2 % (10.5-14.5); WBC 14.7 thou/uL (4.0-11.0)
--- NOTE | 2020-02-10 10:08 | NUR ---
Assumed care at 0700, assessment and vital signs completed per ICU protocol. Dr. Dickerson rounded this am, plan of care discussed. Pt's daughter, Priscilla, called RN for an update. RN provided update, no further questions at this time.
[2020-02-11] VITALS (57 sets, daily range): BP systolic 93–152; BP diastolic 37–55
--- NOTE | 2020-02-11 01:37 | NUR ---
Pt progressing poorly towards d/c goals. She remains nonverbal, does not follow commands, remains on ventilator. Fio2 90% on ventilator, peep 10 rt 24. Pt desats to 80's with turning or bathing. Otherwise sats 94-99%. Titrated levofed off. Map >65. 1 liter of ns over 4hrs given as ordered. D51/2NS at 125 ml/hr started after. Smal1 2 cm lg o.5 cm wide linear skin breakdown noted at sacral area with small amount of bloody drainage noted. Camera not working . Charge nurse aware. Zgard applied. Turning pt q 2 hrs. Bed down. Bed alarm on. Scds on. Extremities elevated on pillows . 3+ generalized edema noted. UO wnl hourly so far. Resumed tf at 25 ml/hr. Residuals have been 10-20 ml. Will continue to monitor pt for changes.
--- NOTE | 2020-02-11 03:33 | NUR ---
URINE NOTED ON BED IN [facility]. REPLACED ELKINS CATHETER. 1500 OBTAINED FROM BLADDER.
[2020-02-11 06:12] LABS: HEMATOCRIT 23.2 % (37.0-47.0); HEMOGLOBIN 7.6 gm/dL (12.0-15.0); MCH 30.3 pg (26.0-34.0); MCHC 32.6 g/dL (28.0-37.0); RBC 2.5 mil/uL (4.20-5.00); RDW 16.7 % (10.5-14.5); WBC 12.4 thou/uL (4.0-11.0)
[2020-02-11 06:33] LABS: CALCIUM 7.8 mg/dL (8.5-10.1); CREATININE 0.6 mg/dL (0.6-1.0); POTASSIUM 4.7 mmol/L (3.5-5.1)
--- NOTE | 2020-02-11 08:37 | NUR ---
MAP < 65. RESTARTED LEVOFED. TITRATED TO 1 MCG. SEE VS, PT HAS HAD GOOD UO AFTER NEW ELKINS INSERTED. LUNGS SLIGHTLY COARSE THIS AM. NOTIFIED LORI SHIFT NS RE BS AND TF RESIDUALS. TF OFF FOR NOW.
--- NOTE | 2020-02-11 13:43 | NUR ---
ON-GOING ASSESSMENT: CM REVIEWED CHART. PT IS COVID POSITIVE AND REMAINS ON THE VENT AND IS REQUIRING HIGH FI02. PER PROGRESS NOTES NOT MUCH/ANY IMPROVEMENT SEEN. CM WILL CONTINUE TO FOLLOW TO ASSIST NEEDED. ASSISTANT READING TEACHER TO UPDATE FACILITY ON CLINICAL.
--- NOTE | 2020-02-11 16:47 | NUR ---
FAXED CLINICAL UPDATE TO [facility] SPOKE WITH CLEO IN ADM SHE RECEIVED UPDATE.
[2020-02-12] VITALS (48 sets, daily range): BP systolic 104–148; BP diastolic 38–60
--- NOTE | 2020-02-12 07:10 | NUR ---
PT WAS SEEN YESTERDAY BY 02/11/2020 PT IS NOT PROGRESSING TOWARDS DISCHARGE. PT'S FAMILY HAD CALLED THE UNIT REGARDING AN UPDATE, RN PROVIDED AN ACCURATE DESCRIPTION OF CURRENT CLINICAL PICTURE, SPEAKING ABOUT NOT BEING ABLE TO TOLERATE FIO2 <70% FOR THE PAST 5 WORKING DAYS. PT'S REP INQUIRED ABOUT BRAIN ACTIVITY FOR THE PT, RN EXPLAINED THAT A CT WAS ORDERED BUT CURRENT STAFFING DID NOT ALLOW FOR THE PT TO GO DOWN FOR A CT SCAN OF THE HEAD BUT WILL GET DONE. PT'S REP AGREED TO THE PLAN. WAS NOTIFIED OF THIS COMMUNICATION AND INSTRUCTED THE RN TO TAKE THE PT DOWN TO CT WHEN POSSIBLE. VERSED GTT WAS TAKEN OFF DURING THE END OF THE SHIFT, PT'S VS DID NOT CHANGE AT THE TIME OF RN'S DEPARTURE. NO CLINCAL EVIDENCE OF IMPROVEMENT, PT HAS BEEN STAGNATING IN PROGRESS AND HAS NOT SHOWN SIGNS OF GETTING BETTER. URINE OUTPUT SUFFICIENT, GROWING EDEMA, SPONTANEOUS EYE OPENING AT TIMES, AND GAG REFLEX PRESENT. RN SIGNING OFF
--- NOTE | 2020-02-12 07:44 | NUR ---
PT SEDATED, NON-PURPOSEFUL EYES OPENING DURING REPOSITIONING. PUPILS SLUGGISH. AFEBRILE, VSS ON LOW DOSE LEVOPHED LAST NNIGHT. LEVOPHED OFF AT 0615 THIS AM. GAG/COUGH REFLEX POSITIVE, L/S COARSE. UOP 3450ML OVERNIGHT.RECEIVING LASIX PER ORDERS.FMS INTACT. CURRENTLY ON FiO2 85%. AND NOT PROGRESSING TOWARDS GOAL.
--- NOTE | 2020-02-12 11:43 | NUR ---
IN.PEEP DEC'D TO 8CM PER .--VW
--- NOTE | 2020-02-12 14:17 | NUR ---
ON-GOING ASSESSMENT: CM REVIEWED CHART. PT REMAINS IN ENHANCED ISOLATION DUE TO COVID 19 AND IS SEDATED ON THE VENT. CLINICAL UPDATES WERE SENT TO [facility] PREVIOUS DAY. CM WILL CONTINUE TO FOLLOW TO ASSIST NEEDED.
[2020-02-13] VITALS (21 sets, daily range): BP systolic 83–131; BP diastolic 37–50
--- NOTE | 2020-02-13 05:08 | NUR ---
Report received at 1900, care assumed. At 1940, Pt noted to be having increased irregular heart rate at 140-150. Andrae notified. Order for EKG given d/t new onset. EKG shows SVT, TOMBSTONE ERECTOR notified, see new orders. AT 2019 pt noted hypoxic with O2 sats at low 70s. Pt on FIO2 of 95%, suctioning done, FI02 increased to 100%. Propofol drip started. Pt's O2 sats increased to 90% on 100% FIO2. Daughter called at 2129, updates given, asked whether there's any improvement with patient's condition, this nurse made daughter aware that patient still remains critical. Daughter stated she will talk to brother and they will agree on what to do and stated she's scared about mother's condition due to her not making any improvements. States she will call the following day to update staff on what they would've decided. At 0100, pt noted to have irregular heart rate of above 160. Yoel Cruz notified. See new orders. EKG done at 0127 showing afib with RVR. Nancy notified, new order for cardizem drip given, cardiology consulted. Dr Jewell made aware it's a new onset, stated to continue with cardizem protocol. Will continue to monitor patient.
--- NOTE | 2020-02-13 07:24 | EKG ---
[address] [address] ELECTROCARDIOGRAM REPORT Name: TIO YOU Room #: 245- ADM IN M.R.#: [id number] Admission: 01/27/20 Attend Phys: Brunilda Hdz MD Discharge: Date of : 44 Report #: [id number] [facility] Test Date: 2020-02-13 Test Time: 01:27:15 Pat Name: TIO YOU Department: Room: [facility] Gender: F Regional Director Of Finance: MAYUR : 1940 Requested By: Brunilda Hdz Order Number: [id number] MD: Ramiro Luong Measurements Intervals [place] Rate: 140 P: NC: QRS: -7 QRSD: 51 T: 36 QT: 326 QTc: 498 Interpretive Statements Atrial fibrillation Borderline prolonged QT interval Artifact in lead(s) I,II,aVR,aVL,aVF,V1,V2,V3,V4,V5,V6 and baseline wander in lead Compared to ECG 02/12/2020 20:17:40 Early repolarization no longer present Electronically Signed On 02-13-2020 7:24:31 BAKERY MANAGER by Ramiro Luong [email or web address] <ELECTRONICALLY SIGNED> By: Ramiro Luong MD, FACC 02/13/20 0724 0127 012 Ramiro Luong MD, [facility] /EPI
--- NOTE | 2020-02-13 07:26 | EKG ---
[address] [address] ELECTROCARDIOGRAM REPORT Name: TIO YOU Room #: 245- ADM IN M.R.#: [id number] Admission: 01/27/20 Attend Phys: Brunilda Hdz MD Discharge: Date of : 44 Report #: [id number] [facility] Test Date: 2020-02-12 Test Time: 20:17:40 Pat Name: TIO YOU Department: Room: [facility] Gender: F Stem Frazer: Lucas CASTANON : 1940 Requested By: Brunilda Hdz Order Number: [id number] : Ramiro Luong Measurements Intervals [place] Rate: 138 P: 39 NV: 131 QRS: 15 QRSD: 66 T: 44 QT: 274 QTc: 415 Interpretive Statements Supraventricular tachycardia Multiple premature complexes, vent & supraven Repolarization abnormality, prob rate related Compared to ECG 01/27/2020 01:13:04 Early repolarization now present Sinus tachycardia no longer present Electronically Signed On 02-13-2020 7:26:40 BEHAVIORAL MEDICAL DIRECTOR by Ramiro Luong [email or web address] <ELECTRONICALLY SIGNED> By: Ramiro Luong MD, FACC 02/13/20 0726 16 16 Ramiro Luong MD, [facility] /EPI
[2020-02-13 09:27] LABS: BE(vivo) 6.5 mmol/L (-2 to +3); HCO3 32.5 mmol/L (22.0-26.0); PCO2 55.3 mmHg (35.0-45.0); PO2 50.3 mmHg (80.0-100.0); pH 7.387 (7.360-7.450); sO2 84.4 % (92.0-98.0)
--- NOTE | 2020-02-13 19:14 | NUR ---
PT IS NOT PROGRESSING TOWARDS DISCHARGE, LESS URINE OUTPUT THIS SHIFT THAN PRIOR SHIFTS, PT'S O2 DECLINE IN THE MORNING TO 79% AND WAS NOT ABLE TO BRING IT BACK UP FOR 30MINUTES. PROPOFOL/VERSED/FENTANYL GTT STILL RUNNING. ANYTIME RN TRIED TO TURN THE PT, PT WOULD DESAT AND MAINTAIN FOR FEW MINUTES, PT IS HEMODYNAMICALLY UNSTALBE. WORSENING WEEPING/EDEMA, BLISTERS FORMING. RN SPOKE WITH MELVIN MATHEUS, PT'S DAUGHTER AT 1010, IT WAS SPOKEN THAT MELVIN WANTED TO WITHDRAW CARE FOR THE PT TOMORROW, RN SUGGESTED SPEAKING WITH , WAS REACHED AND SPOKE WITH THE PT'S REP, TOMORROW MORNING AT 1000 PT IS SCHEDULED TO WITHDRAW CARE. MELVIN JARVIS/ABNER SANDHU(SON)/KAUR SANDHU(GRANDSON) WILL BE VISITING THROUGH THE ED. IT WAS REPORTED THAT [facility] WILL BE THE HOME FOR THE PT AFTER EXPIRATION. RN SIGNING OFF AT THIS TIME. PARTIAL BED BATH WAS GIVEN.
[2020-02-14] VITALS (11 sets, daily range): BP systolic 76–148; BP diastolic 24–52
--- NOTE | 2020-02-14 10:18 | NUR ---
LATE ENTRIES FOR 02/12/20-LOCKED OUT OF COMPUTER & UNABLE TO COMPLETE CHARTING ON THAT DATE.--VW
--- NOTE | 2020-02-14 14:11 | NUR ---
PT HAD TERMINAL WEAN AT 1130. TOD 1210. FAMILY WAS ABLE TO SEE PT FROM OUTSIDE OF [facility]. PT AND FAMILY WERE EXTENSIVELY EDUCATED ON PT CONDITION AND POC. PT PRONOUNCED BY MYSELF AND MADDY BOWIE RN AT 1210. [facility]N CALLED, REFERAL NUMBER [phone].
--- NOTE | 2020-02-14 14:57 | NUR ---
FAXED CLINICAL UPDATE TO [facility] SPOKE WITH CLEO IN ADM SHE RECEIVED UPDATE. DP TO FOLLOW.
== END 2020-02-14 12:10 | DRG 870 ==
LOC: ER 00:19 → EROBS 01:51 → ICU 01:51
PROVIDERS: Emergency Medicine; Hospitalist; Internal Medicine; Internal Medicine Pulmonary Disease; Nurse Practitioner Family; Pediatrics; Specialist; ADMIT Internal Medicine; ATTEND Internal Medicine
PROC: 02H633Z Insertion of Infusion Device into Right Atrium, Percutaneous Approach (ICD-10-PCS; principal; 2020-01-27)
PROC: 0BH17EZ Insertion of Endotracheal Airway into Trachea, Via Natural or Artificial Opening (ICD-10-PCS; principal; 2020-01-27)
PROC: XW033E5 Introduction of Remdesivir Anti-infective into Peripheral Vein, Percutaneous Approach, New Technology Group 5 (ICD-10-PCS; principal; 2020-01-27)
PROC: 5A1955Z Respiratory Ventilation, Greater than 96 Consecutive Hours (ICD-10-PCS; principal; 2020-01-27)
DX: A41.9 Sepsis, unspecified organism (principal); U07.1 COVID-19; I21.4 Non-ST elevation (NSTEMI) myocardial infarction; E43 Unspecified severe protein-calorie malnutrition; J12.89 Other viral pneumonia; J96.21 Acute and chronic respiratory failure with hypoxia; G92 Toxic encephalopathy; N17.9 Acute kidney failure, unspecified; E88.09 Other disorders of plasma-protein metabolism, not elsewhere classified; F03.90 Unspecified dementia, unspecified severity, without behavioral disturbance, psychotic disturbance, mood disturbance, and anxiety; F17.201 Nicotine dependence, unspecified, in remission; F32.9 Major depressive disorder, single episode, unspecified; E86.0 Dehydration; K59.00 Constipation, unspecified; N18.9 Chronic kidney disease, unspecified; R62.7 Adult failure to thrive; R65.20 Severe sepsis without septic shock; D69.6 Thrombocytopenia, unspecified; Z66 Do not resuscitate; Z51.5 Encounter for palliative care; Z85.3 Personal history of malignant neoplasm of breast; Z92.3 Personal history of irradiation; Z90.710 Acquired absence of both cervix and uterus; Z68.33 Body mass index [BMI] 33.0-33.9, adult; Z79.899 Other long term (current) drug therapy
CPT/HCPCS: 10078